=== PATIENT | female | born 1935 | race Caucasian/White ===

== ENCOUNTER 2020-11-09 18:51 | Emergency (ER) | payer MEDICARE, BC ==
--- NOTE | 2020-11-09 18:53 | ED ---
Syncope HPI - General Chief Complaint: Syncope Stated Complaint: syncope Time Seen by Provider: 11/09/20 18:53 - History of Present Illness Initial Comments: Patti is a pleasantly demented 85yo F brought to the ER ambulance after apparently having a syncopal episode home. History is provided by EMS staff who reports that the patient is single episode while using the restroom. She was moved to her bed where she became more awake and alert she returned to her baseline which is oriented 2 and pleasantly demented. Family wanted her to the hospital for evaluation. Her daughter is a pharmacist that the neighboring hospital and is expecting the patient at that hospital. EMS mistakenly brought the patient to this hospital. Her son who followed in the [facility] arrived immediately after her and stated that they are not supposed to be at this hospital, they dont want her examined or treated her at all Review of Systems ROS Statement: Those systems with pertinent positive or pertinent negative responses have been documented in the HPI. ROS Other: All systems not noted in ROS Statement are negative. General Exam - General Exam Comments Initial Comments: Physical Exam GENERAL: Sitting on stretcher, no acute distress HENT: atraumatic EYES: PERRL PULMONARY: Unlabored respirations. CARDIOVASCULAR: Warm extremities, strong pulse ABDOMEN: Not assessed SKIN: No obvious injury : Deferred NEUROLOGIC: Oriented to self, aware she is at a hospital, asking what is happening MUSCULOSKELETAL: Moving all extremities with no apparent injury PSYCHIATRIC: Pleasantly demented Medical Decision Making - Medical Decision Making The patient was seen at bedside she is awake and talking, pleasantly demented, no apparent distress, son at bedside states that it's his mistake he told the ambulance were negative the wrong hospital his sister absolutely demands that [facility] Their questions that she not be evaluated at this hospital. At this time my medical screening exam reveals no obvious acute emergent life threats patient will be leaving AMA and her son's care. Disposition Clinical Impression: Syncope Disposition: Left Against Medical Advice Is patient prescribed a controlled substance at d/c from ED?: No Referrals: Yobany Todd DO [Primary Care Provider] - 1-2 days
== END 2020-11-09 19:01 | disposition left against medical advice (07) ==
LOC: EC 18:51
DX: R55 Syncope and collapse (principal)
CPT/HCPCS: 99284